=== PATIENT | female | born 1995 | race Two or more races ===

== ENCOUNTER 2018-11-23 20:23 | Inpatient (IN) ==
[2018-11-23] MEDS ORDERED: PENICILLIN G POTASSIUM 6 MU in DEXTROSE 5% 250 ML IV STA (20:42)
[2018-11-23] MEDS ORDERED: OXYTOCIN 30 UNITS/500 ML BAG IV PRN (20:42)
[2018-11-23] MEDS ORDERED: PENICILLIN G POTASSIUM 3 MU in DEXTROSE 5% 100 ML IV PRN (20:42)
--- NOTE | 2018-11-23 21:20 | History & Physical Report ---
Date of Service November 23, 2018 Assessment & Plan (1) Term : Expectant management Present on Admission?: Yes (2) Group B streptococcal infection during : IV PCN Present on Admission?: Yes History of Present Illness Chief Complaint: Contractions Primary Care Provider: NO PCP Pt here for labor. . Currently dilated to 6-7 cm. GBS positive. Tani since 2 pm. Allergies Allergy/AdvReac Type Severity Reaction Status Date / Time No Known Allergies Allergy Verified 11/23/18 20:52 Home Medications Home Medications Medication Instructions Recorded Confirmed Type PNV cmb#95-ferrous fumarate-FA 1 tab PO DAILY 11/23/18 11/23/18 History [] Patient History Medical History Fibroadenoma of breast History of blood transfusion Social History Preferred Language: [place]an Beliefs That Will Affect Care: None marital status: Current Living Situation: Spouse Other Information That Helps Us Care for You: No Feels Safe at Home: Yes Hx Alcohol Use: No Review of Systems All systems reviewed & are unremarkable except as noted in HPI & below Physical Exam Constitutional: WD/WN, vitals as above Respiratory: normal respiratory effort, lungs clear to auscultation Cardiovascular: RRR, no murmur, no edema Gastrointestinal (Abdomen): gravid Genitourinary: OB Exam Abdomen: + heart tones (Category 1) Manual OB Exam: + cervical dilation 6 cm, + cervical effacement 80% and + station -1 Monitoring External Monitor Category 1
[2018-11-23 21:38] LABS: Hematocrit (blood only) 38.9 % (37-47); Hemoglobin 13.5 g/dL (12.0-16.0); Mean Corpuscular Volume 90.3 fL (80-100); Mean Platelet Volume 11.2 fL (7.4-10.4); Nucleated RBC # (auto) 0.04 K/uL (0-0); Nucleated RBC % (auto) 0.2 %; Platelet Count 170 K/uL (130-400); RDW Coefficient of Variation 12.7 % (11.5-14.5); RDW Standard Deviation 41.8 fL (36.4-46.3); Red Blood Count 4.31 M/uL (4.2-5.4); White Blood Count 16.87 K/uL (4.8-10.8)
[2018-11-23] MEDS: LACTATED RINGER'S 1,000 ML IV PRN ×2 (21:50→22:52)
[2018-11-23 21:54] LABS: Mean Corpuscular Hgb Conc 34.7 g/dL (32-36)
[2018-11-23] MEDS ORDERED: fentaNYL citrate 100 MCG/2 ML VIAL ONE (22:01)
[2018-11-23] MEDS ORDERED: ePHEDrine sulfate 50 MG/ML AMP ONE (22:01)
[2018-11-23] MEDS ORDERED: BUPIVACAINE 0.25% 30 ML VIAL ONE (22:01)
[2018-11-23] MEDS ORDERED: fentaNYL 2MCG/ML ROPIV 1.25MG/ML 100 ML BAG EPI ONE (22:02)
[2018-11-23] MEDS ORDERED: ePHEDrine sulfate 50 MG/ML AMP IV PRN (22:22)
[2018-11-23] MEDS ORDERED: NALOXONE HCL 0.4 MG/1 ML VIAL/CARP IV PRN (22:22)
[2018-11-23] MEDS ORDERED: NALBUPHINE HCL INJ 10 MG/ML AMP IV PRN (22:22)
[2018-11-23] MEDS ORDERED: fentaNYL 2MCG/ML ROPIV 1.25MG/ML 100 ML BAG EPI PRN (22:22)
[2018-11-23] MEDS ORDERED: DiphenhydrAMINE HCL 50 MG/ML VIAL IV PRN (22:22)
[2018-11-23] MEDS ORDERED: NALOXONE HCL 1 MG in SODIUM CHLORIDE 0.9% 1000ML 1,000 ML IV PRN (22:22)
[2018-11-23] MEDS ORDERED: ONDANSETRON INJ 2 MG/ML 2 ML VIAL IV PRN (22:22)
--- NOTE | 2018-11-23 22:27 | Anesthesiology Consultation ---
Date of Service November 23, 2018 Assessment & Plan Chart Review Chart Review: Patient NOT seen in Pre Admission Testing and Acceptable Risk for Labor Epidural Consults Requested none ASA ASA2 Proposed Anesthesia Anesthesia Type: Labor Epidural and CSE Risk / Benefits Reviewed With: PT / POA / Parent / Guardian, Accepts Plan and Informed Consent Obtained History Height/Weight Weight: 72.575 kg Allergies Allergy/AdvReac Type Severity Reaction Status Date / Time No Known Allergies Allergy Verified 11/23/18 20:52 Medications Home Medications Medication Instructions Recorded Confirmed Last Taken PNV cmb#95-ferrous fumarate-FA 1 tab PO DAILY 11/23/18 11/23/18 11/22/18 22:00 [] Active Medications Generic Name Dose Route Start Last Admin Trade Name Freq PRN Reason Stop Dose Admin Lactated Ringer's 1,000 mls @ 125 mls/hr 11/23/18 20:42 11/23/18 21:50 Lr IV 11/25/18 20:41 999 mls/hr .Q8H PRN Administration L&D Protocol Protocol Past Medical History Medical History Fibroadenoma of breast History of blood transfusion Exercise / Class Metabolic Activity II 4-5 Yardwork/Stairs/Walk up hill Past Anesthesia History No Hx of Anesthesia Complications and No Family Hx of Anesthesia Complications Social History Smoking Status: Never smoker Hx Alcohol Use: No Hx Substance Use: No Review of Systems no chest pain or sob Physical Exam Vital Signs Last Vital Signs Temp 36.8 C 11/23/18 21:12 Pulse 81 11/23/18 22:26 Resp 18 11/23/18 21:12 BP 130/87 11/23/18 20:32 Pulse Ox 97 11/23/18 22:26 BP 130/87 ENMT Mouth: no TMJ abnormality Thyromental Distance: > or= 3.5 Finger Breadths Mallampati Class: II Neck normal visual inspection Respiratory normal respiratory effort Auscultation: lungs clear to auscultation bilaterally Cardiovascular Rate/Rhythm: regular rate and regular rhythm Musculoskeletal Spine: normal cervical ROM Neurologic moves all extremities Psychiatric Orientation: alert and oriented x 3 Testing Other Testing plt 170
[2018-11-24] MEDS ORDERED: DIPHTHERIA/TETANUS/PERTUSSIS 0.5 ML SYR/VIAL IM ONE (04:33)
[2018-11-24] MEDS ORDERED: BENZOCAINE 20% AER SPR 82.5 GM CAN EXT PRN (04:33)
[2018-11-24] MEDS ORDERED: BISACODYL 10 MG SUPP PR PRN (04:33)
[2018-11-24] MEDS ORDERED: HYDROCORTISONE ACETATE 25 MG SUPP PR PRN (04:33)
[2018-11-24] MEDS ORDERED: SUPERCREAM 0.870% 15 GM JAR EXT PRN (04:33)
[2018-11-24] MEDS ORDERED: OXYTOCIN 30 UNITS/500 ML BAG IV PRN (04:33)
[2018-11-24] MEDS ORDERED: OXYCODONE/ACETAMINOPHEN 5mg/325mg TAB PO PRN (04:33)
[2018-11-24] MEDS ORDERED: ACETAMINOPHEN 325 MG TAB PO PRN (04:33)
[2018-11-24] MEDS ORDERED: IBUPROFEN 600 MG TAB PO PRN (04:33)
--- NOTE | 2018-11-24 04:41 | Procedure Note ---
Vaginal Delivery Summary Date of Service November 24, 2018 Vaginal Delivery Summary Pt had a spontaneous vaginal delivery Spontaneous delivery of intact placenta Apgars 8&9 Second degree perineal and left vaginal laceration repaired with 3-0 Vicryl EBL 250 mL
--- NOTE | 2018-11-24 07:24 | Anesthesia Procedure Note ---
Date of Service November 24, 2018 Anesthesia Post Epidural Note Vital Signs Vital Signs: Temp Pulse Resp BP Pulse Ox 11/24/18 07:13 57 L 133/82 11/24/18 07:02 57 L 136/83 11/24/18 06:52 47 L 130/77 11/24/18 06:42 61 118/72 11/24/18 06:32 62 129/76 11/24/18 06:30 18 11/24/18 06:22 58 L 144/77 H 11/24/18 06:12 51 L 142/77 H 11/24/18 06:02 59 L 139/72 11/24/18 06:00 18 11/24/18 05:52 63 127/65 11/24/18 05:42 73 127/67 11/24/18 05:32 64 136/75 11/24/18 05:30 64 18 136/75 11/24/18 05:22 69 136/75 11/24/18 05:15 20 11/24/18 05:12 53 L 131/60 11/24/18 05:02 67 128/65 11/24/18 05:00 18 11/24/18 04:54 36.9 C 11/24/18 04:51 76 141/73 H 11/24/18 04:42 169 H 200/85 H 11/24/18 04:32 79 131/83 11/24/18 04:30 18 11/24/18 04:01 127 H 95 11/24/18 04:00 36.9 C 97 H 123/63 11/24/18 03:56 108 H 94 11/24/18 03:51 95 H 94 11/24/18 03:50 75 94 11/24/18 03:46 110 H 95 11/24/18 03:45 87 94 11/24/18 03:41 80 94 11/24/18 03:36 107 H 95 11/24/18 03:35 126 H 94 11/24/18 03:31 96 H 97 11/24/18 03:28 81 84 L 11/24/18 03:26 75 97 11/24/18 03:23 99 H 93 11/24/18 03:21 115 H 94 11/24/18 03:17 114 H 88 L 11/24/18 03:16 77 99 11/24/18 03:12 116 H 87 L 11/24/18 03:11 100 H 97 11/24/18 03:06 85 86 L 11/24/18 03:01 106 H 94 11/24/18 02:59 87 91 11/24/18 02:56 70 96 11/24/18 02:53 97 H 91 11/24/18 02:51 64 98 11/24/18 02:48 70 93 11/24/18 02:46 71 88 L 11/24/18 02:45 20 11/24/18 02:42 126 H 91 11/24/18 02:41 118 H 96 11/24/18 02:36 98 H 93 11/24/18 02:34 90 126/75 11/24/18 02:31 79 96 11/24/18 02:30 84 91 11/24/18 02:26 68 94 11/24/18 02:23 72 94 11/24/18 02:21 62 132/86 95 11/24/18 02:18 79 94 11/24/18 02:16 106 H 84 L 11/24/18 02:12 105 H 92 11/24/18 02:11 115 H 97 11/24/18 02:06 101 H 98 11/24/18 02:04 75 130/89 11/24/18 02:01 67 95 11/24/18 02:00 36.9 C 80 94 11/24/18 01:56 66 96 11/24/18 01:53 64 94 11/24/18 01:51 86 96 11/24/18 01:49 67 139/92 11/24/18 01:46 84 95 11/24/18 01:42 71 94 11/24/18 01:41 65 95 11/24/18 01:36 76 96 11/24/18 01:35 61 137/85 11/24/18 01:31 92 H 95 11/24/18 01:30 68 94 11/24/18 01:26 88 96 11/24/18 01:21 87 96 11/24/18 01:20 66 133/76 11/24/18 01:16 77 95 11/24/18 01:15 68 94 11/24/18 01:11 66 95 11/24/18 01:09 64 94 11/24/18 01:06 70 95 11/24/18 01:05 62 145/86 H 11/24/18 01:01 62 96 11/24/18 01:00 18 11/24/18 00:59 108 H 94 11/24/18 00:56 63 96 11/24/18 00:54 72 94 11/24/18 00:51 65 129/83 96 11/24/18 00:49 71 94 11/24/18 00:46 96 H 95 11/24/18 00:41 108 H 95 11/24/18 00:36 68 94 11/24/18 00:35 71 130/67 11/24/18 00:31 63 95 11/24/18 00:30 67 94 11/24/18 00:26 90 95 11/24/18 00:23 73 94 11/24/18 00:21 84 95 11/24/18 00:20 106 H 118/74 11/24/18 00:16 72 95 11/24/18 00:11 85 96 11/24/18 00:08 70 93 11/24/18 00:06 80 97 11/24/18 00:04 88 118/58 L 11/24/18 00:03 79 94 11/24/18 00:01 73 96 11/24/18 00:00 36.7 C 18 11/23/18 23:56 70 96 11/23/18 23:51 86 125/63 95 11/23/18 23:46 90 96 11/23/18 23:41 78 95 11/23/18 23:36 73 123/76 96 11/23/18 23:31 97 H 96 11/23/18 23:26 71 96 11/23/18 23:21 84 132/81 97 11/23/18 23:16 90 96 11/23/18 23:15 18 11/23/18 23:11 83 97 11/23/18 23:10 83 94 11/23/18 23:06 72 97 11/23/18 23:05 71 121/84 11/23/18 23:01 72 97 11/23/18 23:00 18 11/23/18 22:56 76 97 11/23/18 22:52 91 H 93 11/23/18 22:51 87 97 11/23/18 22:48 91 H 121/62 11/23/18 22:46 94 H 18 112/56 L 96 05/26/19 22:44 90 117/58 L 11/23/18 22:43 79 18 116/66 11/23/18 22:41 36.9 C 89 18 97 11/23/18 22:40 105 H 132/75 93 11/23/18 22:36 111 H 94 11/23/18 22:29 108 H 94 11/23/18 22:26 81 97 11/23/18 22:21 95 H 97 11/23/18 22:16 88 98 11/23/18 22:11 112 H 99 11/23/18 22:06 84 99 11/23/18 21:12 36.8 C 18 11/23/18 20:32 18 130/87 Notes Mental Status: alert / awake / arousable Patient Amnestic to Procedure: Yes Nausea / Vomiting: adequately controlled Pain: adequately controlled Airway Patency, RR, SpO2: stable & adequate BP & HR: stable & adequate Hydration State: stable & adequate Neuraxial Anesthesia: was administered and sensory block resolved Anesthetic Complications: no major complications apparent and Pt Satisfied with anesthetic care Epidural: Removed without complications and With tip intact
[2018-11-24] MEDS ORDERED: NON-FORMULARY MEDICATION (Pnv Cmb#95-Ferrous Fumarate-Fa [Prenatal] 1 TAB) PO SCH (09:00)
[2018-11-24] MEDS: PRENATAL VITAMIN 1 TAB PO SCH (13:46)
[2018-11-24] MEDS: DOCUSATE SODIUM 100 MG CAP PO SCH ×2 (13:46→21:00)
[2018-11-25 06:52] LABS: Hematocrit (blood only) 34.9 % (37-47); Hemoglobin 11.9 g/dL (12.0-16.0); Mean Corpuscular Hgb Conc 34.1 g/dL (32-36); Mean Corpuscular Volume 89.9 fL (80-100); Mean Platelet Volume 10.4 fL (7.4-10.4); Platelet Count 183 K/uL (130-400); RDW Coefficient of Variation 12.7 % (11.5-14.5); RDW Standard Deviation 41.4 fL (36.4-46.3); Red Blood Count 3.88 M/uL (4.2-5.4); White Blood Count 13.16 K/uL (4.8-10.8)
[2018-11-25] MEDS: PRENATAL VITAMIN 1 TAB PO SCH (08:17)
[2018-11-25] MEDS: DOCUSATE SODIUM 100 MG CAP PO SCH (08:17)
--- NOTE | 2018-11-25 10:38 | Obstetrical Progress Note ---
Date of Service November 25, 2018 Assessment & Plan (1) normal course: PPD #1 pt doing well Anticipate disch tomorrow Subjective Ambulation: ambulating normally Voiding: no voiding problems Passing Gas:: Yes Diet Tolerance:: regular diet Lochia:: Small Feeding Type:: breast feeding Review of Systems All systems reviewed & are unremarkable except as noted in HPI & below Physical Exam Vital Signs (Past 24 Hours) Last Vital Signs Temp 36.4 C L 11/25/18 08:00 Pulse 73 11/25/18 08:00 Resp 20 11/25/18 08:00 BP 110/70 11/25/18 08:00 Pulse Ox 97 11/25/18 08:00 Constitutional WD/WN, vitals as above well developed and well nourished Eyes PERRL, conjunctivae normal, anicteric sclerae Neck trachea midline, no thyromegaly Respiratory normal respiratory effort, lungs clear to auscultation Auscultation: no crackles, no rales and no wheezes Cardiovascular RRR, no murmur, no edema Gastrointestinal (Abdomen) normal bowel sounds, soft, nontender, no hepatosplenomegaly Uterus is below umbilicus Musculoskeletal no cyanosis or clubbing, extremities motor strength 5/5 Skin no rashes, warm and dry Neurologic patellar DTR's 2+ bilat, sensation intact Psychiatric A+Ox3, euthymic affect Genitourinary normal external appearance
--- NOTE | 2018-11-25 14:28 | Progress Note ---
Date of Service November 25, 2018 Subjective pt wishes to be discharged home Results & Data Vital Signs (Past 12 Hours) Vital Signs Temp Pulse Pulse Resp BP Pulse Ox 11/25/18 08:00 36.4 C L 73 20 110/70 97 11/25/18 07:30 36.4 C L 75 16 112/73 11/25/18 05:00 36.4 C L 60 16 102/65
[2018-11-25] MEDS ORDERED: BISACODYL 5 MG TABEC PO SCH (20:00)
== END 2018-11-25 16:30 | disposition home or self-care (01) | DRG 807 ==
LOC: OPB 20:23 → 4S1 20:32 → 4S2 11-24 09:21